=== PATIENT | male | born 1965 | race Caucasian/White ===

== ENCOUNTER → 2016-11-10 | Outpatient (REF) ==
--- NOTE | 2016-11-10 14:33 | REP ---
LEFT FOREARM: Two views. HISTORY: Disability. FINDINGS: AP and lateral views of the left forearm demonstrate mild osteoarthritic spurring at the coronoid process of the proximal ulna at the elbow. Bones, joints, and soft tissues are otherwise radiographically unremarkable. IMPRESSION: Mild proximal ulnar spurring. Signed by Rosas Tam MD 11/10/2016 08:12 P
--- NOTE | 2016-11-10 14:33 | REP ---
LEFT WRIST SERIES: Four views. HISTORY: Degenerative disc disease. Disability. FINDINGS: Four views of the left wrist demonstrate overall normal mineralization. There is no evidence of arthropathy or erosive change. IMPRESSION: Negative left wrist series. Signed by Rosas Tam MD 11/10/2016 08:12 P
--- NOTE | 2016-11-10 14:37 | REP ---
BILATERAL HIP SERIES: Five views. HISTORY: Degenerative disc disease. Disability. No comparison studies. FINDINGS: The bony pelvic ring is intact. There is minimal vascular calcification. There is mild discogenic spurring at L4-5 and L3-4 noted incidentally. Sacrum SI joints and symphysis pubis are intact. There is a mottled pattern of sclerotic density in each femoral head consistent with bilateral avascular necrosis. There are areas of flattening and impaction of the involved osteochondral fragments in the superior aspect of each femoral head. Joint space is preserved. No acetabular deformity is seen. Very early marginal spurring is seen on the femoral heads. IMPRESSION: Advanced avascular necrosis bilaterally affecting the femoral heads with flattening and slight impaction. Signed by Rosas Tam MD 11/10/2016 08:12 P
--- NOTE | 2016-11-10 14:38 | REP ---
LUMBAR SPINE SERIES: Three views. HISTORY: Degenerative disc disease. Disability. FINDINGS: Lumbar vertebral body heights are preserved. There is disc space narrowing and osteophyte formation at L4-5 and L3-4. Lesser degenerative disc changes are seen in the lower thoracic spine. Some vascular calcification is observed. Pedicles and posterior elements appear intact. The frontal view shows discogenic spurring at L2-3 and L1-2 along the lateral aspects of the discs as well. The sacrum and SI joints are intact. IMPRESSION: Diffuse degenerative disc disease. Some vascular calcification. Signed by Rosas Tam MD 11/10/2016 08:13 P
== END ==
LOC: M SMT 11:08
PROVIDERS: ATTEND Internal Medicine
DX: Z02.71 Encounter for disability determination (principal)